=== PATIENT | male | born 1985 | race Caucasian/White ===

== ENCOUNTER 2020-03-20 20:48 | Emergency (ER) | payer MEDICAID ==
[~2020-03-20] VITALS: Ht 175.3 cm; Wt 70.0 kg
[2020-03-20 20:52] VITALS: BP 135/72
[2020-03-20 21:40] LABS: BASOPHILS # (AUTO) 0.07 x10^3/uL (0-0.1); BASOPHILS % (AUTO) 1 % (0-1); EOSINOPHILS # (AUTO) 0.52 x10^3/uL (0-0.4); EOSINOPHILS % (AUTO) 6 % (1-7); LYMPHOCYTES # (AUTO) 2.14 x10^3/uL (1-3.4); LYMPHOCYTES % (AUTO) 24 % (22-44); MD NO; MEAN CORPUSCULAR HEMOGLOBIN 32.4 pg (27.5-34.5); MEAN CORPUSCULAR HGB CONC 33.7 g/dL (33.2-36.2); MEAN CORPUSCULAR VOLUME 96.3 fL (81-97); MEAN PLATELET VOLUME 8.1 fL (7.4-10.4); MONOCYTES # (AUTO) 0.85 x10^3/uL (0.2-0.8); MONOCYTES % (AUTO) 9 % (2-9); NEUTROPHILS % (AUTO) 60 % (42-75); PLATELET COUNT 262 x10^3/uL (130-400); RED BLOOD COUNT 4.65 x10^6/uL (4.38-5.82); RED CELL DISTRIBUTION WIDTH 13.6 % (9.4-14.8)
[2020-03-20 21:50] LABS: ALBUMIN 3.9 g/dL (3.4-5.0); ANION GAP 4 mmol/L (5-15); CALCIUM 8.5 mg/dL (8.5-10.1); CHLORIDE 110 mmol/L (98-107); CREATININE 1.03 mg/dL (0.7-1.3)
== END 2020-03-20 22:30 | disposition home or self-care (01) ==
LOC: ED 21:44
DX: R06.00 Dyspnea, unspecified (principal); R53.1 Weakness; R94.31 Abnormal electrocardiogram [ECG] [EKG]; F17.200 Nicotine dependence, unspecified, uncomplicated
CPT/HCPCS: 36415; 71045; 80048; 82040; 85025; 93005; 99285

== ENCOUNTER 2020-04-17 20:09 | Emergency (ER) | payer MEDICAID ==
[~2020-04-17] VITALS: Ht 175.3 cm; Wt 68.2 kg
[2020-04-17] MEDS ORDERED: SODIUM CHLORIDE FLUSH 10ML SYR IVF ONE (20:30)
[2020-04-17] MEDS ORDERED: SODIUM CHLORIDE 0.9% 1,000ML IVBOLUS ONE (20:30)
[2020-04-17 20:56] LABS: BASOPHILS % (AUTO) 1 % (0-1); EOSINOPHILS % (AUTO) 3 % (1-7); LYMPHOCYTES % (AUTO) 31 % (22-44); MEAN CORPUSCULAR HGB CONC 33.7 g/dL (33.2-36.2); MEAN PLATELET VOLUME 8.2 fL (7.4-10.4); MONOCYTES % (AUTO) 8 % (2-9); NEUTROPHILS % (AUTO) 58 % (42-75); PLATELET COUNT 283 x10^3/uL (130-400); RED BLOOD COUNT 4.81 x10^6/uL (4.38-5.82); RED CELL DISTRIBUTION WIDTH 13.2 % (9.4-14.8)
[2020-04-17 20:58] LABS: MD NO
[2020-04-17] MEDS ORDERED: MORPHINE SULFATE 4 MG/ML, 1ML ONE (21:07)
[2020-04-17] MEDS ORDERED: ONDANSETRON 2MG/ML, 2ML ONE (21:07)
[2020-04-17 21:09] LABS: ALBUMIN 4.3 g/dL (3.4-5.0); ANION GAP 7 mmol/L (5-15); CALCIUM 8.6 mg/dL (8.5-10.1); CHLORIDE 106 mmol/L (98-107); CREATININE 1.08 mg/dL (0.7-1.3)
[2020-04-17 21:26] VITALS: BP 101/56
[2020-04-17] MEDS ORDERED: MORPHINE SULFATE 4 MG/ML, 1ML IVPush PRN (21:30)
[2020-04-17] MEDS ORDERED: ONDANSETRON 2MG/ML, 2ML IVPush ONE (21:30)
== END 2020-04-17 21:28 | disposition home or self-care (01) ==
LOC: ED 21:20
DX: S42.021A Displaced fracture of shaft of right clavicle, initial encounter for closed fracture (principal); R55 Syncope and collapse; F17.200 Nicotine dependence, unspecified, uncomplicated; V00.131A Fall from skateboard, initial encounter; Y93.89 Activity, other specified; Y92.410 Unspecified street and highway as the place of occurrence of the external cause; Y99.8 Other external cause status
CPT/HCPCS: 36415; 73030; 80048; 82040; 85025; 93005; 96361; 96374; 96375; 99285; J2270; J2405; J7030

== ENCOUNTER → 2020-04-30 | Outpatient (CLI) | payer MEDICAID ==
[~2020-04-30] MED LIST: AMPH30TA2 PO
== END | disposition home or self-care (01) ==
LOC: STAR 12:04
PROVIDERS: ATTEND Anesthesiology
DX: Z01.812 Encounter for preprocedural laboratory examination (principal); Z20.828 Contact with and (suspected) exposure to other viral communicable diseases
CPT/HCPCS: 36415; 87635

== ENCOUNTER 2020-05-02 10:27 | Day surgery (SDC) | payer MEDICAID ==
[~2020-05-02] VITALS: Ht 172.7 cm; Wt 68.7 kg
[~2020-05-02 10:27] MED LIST changes: -AMPH30TA2 PO; +KETOROLAC 30 MG/1 ML ONE
[2020-05-02] MEDS ORDERED: MIDAZOLAM 1 MG/ML, 5ML ONE (10:49)
[2020-05-02] MEDS ORDERED: FENTANYL PF 250 MCG/5ML ONE (10:49)
[2020-05-02 10:57] VITALS: BP 141/93
[2020-05-02] MEDS ORDERED: AMPH30TA2 PO (11:02)
[2020-05-02] MEDS ORDERED: FENTANYL PF 100 MCG/2ML ONE (11:06)
[2020-05-02] MEDS ORDERED: CHLORHEXIDINE 15 ML UDC ONE (11:07)
[2020-05-02] MEDS ORDERED: CHLORHEXIDINE 15 ML UDC MM ONE (11:30)
[2020-05-02] MEDS ORDERED: LACTATED RINGERS 1,000 ML IV SCH (11:30)
[2020-05-02] MEDS ORDERED: BUPIVACAINE/PF 0.5% ONE (11:58)
[2020-05-02] MEDS ORDERED: LIDOCAINE/PF 1%-EPI 1:200K, 30 ML ONE (11:58)
[2020-05-02] MEDS ORDERED: EPINEPHRINE 1 MG/ML, 1ML ONE (11:58)
[2020-05-02] MEDS ORDERED: PROPOFOL 10 MG/ML, 20ML ONE (14:08)
[2020-05-02] MEDS ORDERED: ROCURONIUM 10MG/ML,5ML ONE (14:08)
[2020-05-02] MEDS ORDERED: CEFAZOLIN 1,000 MG ONE (14:08)
[2020-05-02] MEDS ORDERED: DEXAMETHASONE 4 MG/ML, 1ML ONE (14:08)
[2020-05-02] MEDS ORDERED: SUCCINYLCHOLINE 20 MG/ML, 10ML ONE (14:08)
[2020-05-02] MEDS ORDERED: GLYCOPYRROLATE 0.2MG/1ML, 5ML ONE (14:08)
[2020-05-02] MEDS ORDERED: NEOSTIGMINE 1 MG/ML, 10ML ONE (14:08)
[2020-05-02] MEDS ORDERED: ONDANSETRON 2MG/ML, 2ML ONE (14:08)
[2020-05-02] MEDS ORDERED: MEPERIDINE/PF 25MG/ML,1ML ONE (15:03)
[2020-05-02] MEDS ORDERED: OXYcodone 5 MG/5 ML ORAL.SOL UDC ONE (15:03)
[2020-05-02] MEDS ORDERED: OXYcodone 5 MG/5 ML ORAL.SOL UDC PO PRN (15:30)
[2020-05-02] MEDS ORDERED: FENTANYL PF 100 MCG/2ML IV PRN (15:30)
[2020-05-02] MEDS ORDERED: MEPERIDINE/PF 25MG/0.5ML IVPush PRN (15:30)
== END 2020-05-02 16:20 | disposition home or self-care (01) ==
LOC: OUT 10:27
PROVIDERS: ATTEND Orthopaedic Surgery
DX: S42.021A Displaced fracture of shaft of right clavicle, initial encounter for closed fracture (principal); Z20.828 Contact with and (suspected) exposure to other viral communicable diseases; F90.9 Attention-deficit hyperactivity disorder, unspecified type; Z79.891 Long term (current) use of opiate analgesic; Z79.899 Other long term (current) drug therapy; Z98.890 Other specified postprocedural states; V00.131A Fall from skateboard, initial encounter; Y93.51 Activity, roller skating (inline) and skateboarding; Y92.89 Other specified places as the place of occurrence of the external cause; Y99.8 Other external cause status
CPT/HCPCS: 23515; 73000; 87635; C1713; J0171; J0330; J0690; J1100; J1885; J2175; J2250; J2405; J2704; J2710; J3010; J7120

== ENCOUNTER 2020-05-27 11:30 | Emergency (ER) | payer MEDICAID ==
[~2020-05-27] VITALS: Ht 175.3 cm; Wt 67.9 kg
[~2020-05-27 11:30] MED LIST changes: +AMPH30TA2 PO; -KETOROLAC 30 MG/1 ML ONE
[2020-05-27 12:11] VITALS: BP 129/89
== END 2020-05-27 12:13 | disposition home or self-care (01) ==
LOC: ED 12:07
DX: M67.834 Other specified disorders of tendon, left wrist (principal); M77.8 Other enthesopathies, not elsewhere classified; G89.11 Acute pain due to trauma; F17.200 Nicotine dependence, unspecified, uncomplicated
CPT/HCPCS: 29125; 99283